=== PATIENT | male | born 1960 | race Caucasian/White ===

== ENCOUNTER 2017-05-16 09:40 | Inpatient (IN) | payer OTHER, MEDICARE ==
[~2017-05-16] VITALS: Ht 179.1 cm; Wt 104.9 kg
[2017-05-27] MEDS ORDERED: VITA10004 PO (14:37)
[2017-05-27] MEDS ORDERED: LISI-515 PO (14:37)
[2017-05-27] MEDS ORDERED: OMEG100010 PO (14:37)
[2017-05-27] MEDS ORDERED: DIPH0.052 PO (14:37)
[2017-05-27] MEDS ORDERED: MULT1TAB46 PO (14:37)
[2017-05-27] MEDS ORDERED: HYDR2TAB PO (14:37)
--- NOTE | 2017-05-29 14:13 | MH ---
cc: JACK PADRON M.D. DATE OF ADMISSION: 05/30/2017 ADMISSION DIAGNOSIS Cervical spinal stenosis. 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 The patient states that he had an injury to his spine and neck in 2007. The patient has been treated during that period of time. The patient is developing loss of function and feeling in his fingers. He complains of pain that radiates into his shoulder blades. He has undergone physical therapy and injections as well as nerve ablation. He is presently on narcotic pain medication for treatment of chronic pain. MRI scan of the cervical spine shows significant spinal cord compression with spinal stenosis. He presents for staged surgical treatment. PAST MEDICAL HISTORY See attached records. FAMILY HISTORY See attached records. REVIEW OF SYSTEMS See attached records. PHYSICAL EXAMINATION VITAL SIGNS: 5 feet 11 inches, 225 pounds, BMI 31.4. Blood pressure 165/110. HEENT: Normocephalic, atraumatic. Pupils are equal, round and reactive to light and accommodation. Extraocular muscles intact. NECK: Supple. CHEST: Clear. HEART: Regular rate and rhythm. ABDOMEN: Soft, nontender. Normoactive bowel sounds. MUSCULOSKELETAL: Motor strength is weak, right side especially and especially the right biceps, deltoids, brachioradialis, and on the left side the brachioradialis. IMAGING MRI scan of the cervical spine September 26, 2016 shows evidence of C3-4 right-sided foraminal stenosis, osteophyte disc complex cyst at that level. At C4-5 there is a spinal cord compression with spinal stenosis with an osteophyte disc complex and bilateral foraminal stenosis. There is an osteophyte disc complex at C5-6 with spinal stenosis and spinal cord compression. A similar finding is seen at the C6-7 level with right greater than left foraminal stenosis at that level. IMPRESSION 1. Cervical spinal stenosis C3-C7. 2. Cervical radiculopathy. 3. Cervical myelopathy. PLAN Posterior cervical fusion C3-C7, placement of interbody cages, bone grafting, segmental instrumentation. We anticipate two weeks later following this by anterior exposure with anterior cervical discectomy, decompression and bilateral foraminotomies at each level with anterior interbody cages and anterior plates. CONSENT There are risks of surgery including infection, bleeding, loss of motion, continued pain, need for further surgery, neurologic and vascular injury. The patient understands these issues and wishes to press on with surgery as outlined above. MD LATASHA Portillo/IMAN /1:53 PM /1:59 PM ANNA
[2017-05-30] MEDS ORDERED: INSULIN HUMAN REGULAR 1,000 UNITS/10 ML VIAL SQ PRN (09:45)
[2017-05-30] MEDS ORDERED: POVIDONE IODINE 7.5% SCRUB 118 ML BOTTLE TOPICAL SCH (09:45)
[2017-05-30] MEDS ORDERED: SODIUM CHLORID 0.9% 500 ML IV PRN (09:45)
[2017-05-30] MEDS ORDERED: ceFAZolin 2 GM PREMIX 50 ML IV SCH (09:45)
[2017-05-30] MEDS ORDERED: CHLORHEXIDINE GLUCONATE 2 % 1 PACK (2 CLOTHS) TOPICAL PRN (09:45)
[2017-05-30] MEDS ORDERED: METOPROLOL TARTRATE 25 MG TAB PO PRN (09:45)
[2017-05-30] MEDS ORDERED: LACTATED RINGER'S 1000 ML IV PRN (09:45)
[2017-05-30] MEDS ORDERED: POVIDONE IODINE 5% (ANTISEPSIS KIT) 4 APPLICATIONS EACH NARE PRN (09:45)
[2017-05-30] MEDS ORDERED: VANCOMYCIN 1000 MG/NS 250 ML (for <70 kg) IV SCH ×2 (09:45)
[2017-05-30] MEDS ORDERED: ZOLP10TA3 PO (09:48)
[2017-05-30] MEDS ORDERED: HYDR-3516 PO (09:48)
[2017-05-30] MEDS ORDERED: METF500T PO (09:48)
[2017-05-30] MEDS ORDERED: FENO160T PO (09:48)
[2017-05-30] MEDS ORDERED: ALLO300T2 PO (09:48)
[2017-05-30] MEDS ORDERED: ROPI0.5T PO (09:48)
[2017-05-30 09:56] VITALS: BP 150/78; PULSE 58; RESP 18; TEMP 98.5; O2SAT 98
[2017-05-30] MEDS ORDERED: GENTAMICIN SULFATE 80 MG/2 ML VIAL ONE ×2 (10:19)
[2017-05-30] MEDS ORDERED: BUPIVACAINE/EPINEPHRINE 0.5% 50 ML VIAL ONE ×2 (10:23→11:59)
[2017-05-30] MEDS ORDERED: FAMOTIDINE 20 MG/2 ML VIAL ONE (11:43)
[2017-05-30] MEDS ORDERED: fentaNYL CITRATE 250 MCG/5 ML AMP ONE ×2 (11:43→15:02)
[2017-05-30] MEDS ORDERED: KETAMINE HCL 500 MG/5 ML VIAL ONE (11:43)
[2017-05-30] MEDS ORDERED: MIDAZOLAM HCL 2 MG/2 ML VIAL ONE (11:43)
[2017-05-30] MEDS ORDERED: DEXAMETHASONE SOD PHOS 4 MG/ML VIAL ONE (11:44)
[2017-05-30] MEDS ORDERED: HYDROmorphone HCL PF 2 MG/ML VIAL ONE (11:44)
[2017-05-30] MEDS ORDERED: ACETAMINOPHEN 1000 MG/100 ML VIAL IV ONE (11:51)
[2017-05-30] MEDS ORDERED: NEOSTIGMINE 3 MG/3 ML SYR IV ONE (12:00)
[2017-05-30] MEDS ORDERED: PROPOFOL 200 MG/20 ML AMP IV ONE (12:00)
[2017-05-30] MEDS ORDERED: LACTATED RINGER'S 1000 ML INJ 2,000 ML IV ONE (12:00)
[2017-05-30] MEDS ORDERED: ONDANSETRON HCL 4 MG/2 ML VIAL IV PUSH ONE (12:00)
[2017-05-30] MEDS ORDERED: ePHEDrine/NS 25 MG/5 ML SYR IV ONE (12:00)
[2017-05-30] MEDS ORDERED: ACETAMINOPHEN/HYDROcodone 325 MG/7.5 MG TAB PO PRN ×2 (14:30)
[2017-05-30] MEDS ORDERED: ZOLPIDEM TARTRATE 10 MG TAB PO PRN (14:30)
[2017-05-30] MEDS ORDERED: BISACODYL 10 MG SUPP RECTAL PRN (14:30)
[2017-05-30] MEDS ORDERED: metFORMIN HCL 500 MG TAB PO PRN (14:30)
[2017-05-30] MEDS ORDERED: ONDANSETRON HCL 4 MG/2 ML VIAL IV PRN (14:30)
[2017-05-30] MEDS ORDERED: SODIUM CHLORIDE 0.9% FLUSH 5 ML FLUSH IVF PRN (14:30)
[2017-05-30] MEDS ORDERED: MORPHINE SULFATE 4 MG/ML INJ IV PUSH PRN (14:30)
--- NOTE | 2017-05-30 14:33 | PD.OP ---
cc: German Garcia. Operative Report Date of Surgery: May 30, 2017 Preoperative Diagnosis: Cervical spinal stenosis. Cervical radiculopathy. Cervical myelopathy. Postoperative Diagnosis: Same Procedure: Posterior cervical fusion, C3 4, C4 5, C5 6, C6 7. Posterior spinal segmental instrumentation with intra-facet cages C3 4, C4 5, C5 6, C6 7. Left posterior iliac crest bone graft Anesthesia: Gen. Surgeon: German Garcia Computer Programmer Analyst(s): GISELE Casey Operation and Findings: EBL: 100 cc INDICATIONS: This patient is a 57-year-old male with significant neck pain and arm pain with weakness. Studies shows evidence of significant cervical spinal stenosis at multiple levels and evidence of a mild cervical myelopathy. He presents for staged surgical procedure starting first posterior for instrumentation and fusion from C3 to C7. We anticipate anterior cervical decompression and fusion to follow up in approximately 2 weeks NOTE: Maryam Casey PA-C was present for the entire surgical procedure as my expanded function dental assistant. In my medical opinion her skill and care was necessary for proper management of this patient PROCEDURE: The patient was brought the operating room and anesthetized in the supine position. The patient was positioned prone on a Sreedhar table. The arms were placed out along the side and taping was utilized to ensure adequate visualization. AP and lateral radiographic images were used identifying the proper level and allowing excellent exposure for purpose of the cervical fusion. A timeout was done and antibiotics were given within a routine time window. A small incision was made over the left iliac crest bone graft. A series of cores of bone graft were harvested with a special percutaneous device. The bone graft was taken to the back table to be mixed with stem cell bone graft for the later part of the case Using AP and lateral radiographs, skin markings were made. On the right side and 18-gauge spinal needle was placed down to the proper level. The left side a separate incision was made and we used the [employer] system. Exposure was afforded down to the proper level. Under visualization, a chisel was placed down to the C C6 7 level. This was confirmed under radiographs to be in proper position. Exposure was satisfactory. This is placed down into the facet joint at that level. A decorticating device was utilized decorticating the bone of the facet above and below. A retractor was placed down over the access chisel allowing exposure to the joint and exposure to the articular cartilage. A drilling system was utilized removing cartilage and bone this region followed by a rasp. On the back table demineralized bone matrix was mixed with Nucel stem cells and a autogenous bone graft. A combination of both these were then paced placed into proper cages. The cages were impacted into the proper position and checked again under AP and lateral fluoroscopic images. A transfixation screw was placed into the cage having excellent fixation into the facet joint of the level above. The back side of the cage was filled with additional bone graft which was tamped into position. The retractor was removed. On the right side a separate incision was made. Using the likewise sequence of access to the same level, an incision was made allowing visualization for placement of an access chisel which was placed into the joint followed by decortication with excellent visualization. A final retractor was positioned holding this while we were able to drill and use the rasp. The joint was prepared and we created a space for the cage. The cage was filled with bone graft and impacted in proper position. A transfixation screw was fixated at that time and alignment was satisfactory. Additional bone graft placed along the posterior aspect of the cage and the facet joint and was tamped into position. At the C5 6 level, this was repeated in the likewise fashion. A decorticating device was utilized decorticating the bone of the facet above and below. A retractor was placed down over the access chisel allowing exposure to the joint and exposure to the articular cartilage. A drilling system was utilized removing cartilage and bone this region followed by a rasp. On the back table demineralized bone matrix was mixed with Nucel stem cells and a autogenous bone graft. A combination of both these were then paced placed into proper cages. The cages were impacted into the proper position and checked again under AP and lateral fluoroscopic images. A transfixation screw was placed into the cage having excellent fixation into the facet joint of the level above. The back side of the cage was filled with additional bone graft which was tamped into position. The retractor was removed. On the right side this was repeated in the likewise fashion. Using the likewise sequence of access to the same level. An access chisel was placed into the joint followed by decortication with excellent visualization. A final retractor was positioned holding this while we were able to drill and use the rasp. The joint was prepared and we created a space for the cage. The cage was filled with bone graft and impacted in proper position. A transfixation screw was fixated at that time and alignment was satisfactory. Additional bone graft placed along the posterior aspect of the cage and the facet joint and was tamped into position. At the C4 5 level, this was repeated in the likewise fashion. A decorticating device was utilized decorticating the bone of the facet above and below. A retractor was placed down over the access chisel allowing exposure to the joint and exposure to the articular cartilage. A drilling system was utilized removing cartilage and bone this region followed by a rasp. On the back table demineralized bone matrix was mixed with Nucel stem cells and a autogenous bone graft. A combination of both these were then paced placed into proper cages. The cages were impacted into the proper position and checked again under AP and lateral fluoroscopic images. A transfixation screw was placed into the cage having excellent fixation into the facet joint of the level above. The back side of the cage was filled with additional bone graft which was tamped into position. The retractor was removed. On the right side this was repeated in the likewise fashion. Using the likewise sequence of access to the same level. An access chisel was placed into the joint followed by decortication with excellent visualization. A final retractor was positioned holding this while we were able to drill and use the rasp. The joint was prepared and we created a space for the cage. The cage was filled with bone graft and impacted in proper position. A transfixation screw was fixated at that time and alignment was satisfactory. Additional bone graft placed along the posterior aspect of the cage and the facet joint and was tamped into position. At the C3 4 level, this was repeated in the likewise fashion. A decorticating device was utilized decorticating the bone of the facet above and below. A retractor was placed down over the access chisel allowing exposure to the joint and exposure to the articular cartilage. A drilling system was utilized removing cartilage and bone this region followed by a rasp. On the back table demineralized bone matrix was mixed with Nucel stem cells and a autogenous bone graft. A combination of both these were then paced placed into proper cages. The cages were impacted into the proper position and checked again under AP and lateral fluoroscopic images. A transfixation screw was placed into the cage having excellent fixation into the facet joint of the level above. The back side of the cage was filled with additional bone graft which was tamped into position. The retractor was removed. On the right side this was repeated in the likewise fashion. Using the likewise sequence of access to the same level. An access chisel was placed into the joint followed by decortication with excellent visualization. A final retractor was positioned holding this while we were able to drill and use the rasp. The joint was prepared and we created a space for the cage. The cage was filled with bone graft and impacted in proper position. A transfixation screw was fixated at that time and alignment was satisfactory. Additional bone graft placed along the posterior aspect of the cage and the facet joint and was tamped into position. Intraoperative x-rays in AP and lateral plane showed excellent positioning and stabilization . The wound was irrigated copiously. Hemostasis was controlled. The fascia was closed with interrupted Vicryl suture skin and subcutaneous tissue with 3-0 Vicryl suture followed by Dermabond. The sponge count needle counts and sponge counts were all correct. The patient tolerated the procedure well as taken to the recovery room in satisfactory condition. FINDINGS: There was moderate to severe facet arthritis. Instability was noted mostly at the C4-C5 level some at C5 and C6. The right C3-C4 facet joint was significantly sclerotic. Cage position appeared be very satisfactory. No complication was appreciated. German Garcia MD May 30, 2017 14:33
[2017-05-30] MEDS ORDERED: HYDR-3366 PO (14:35)
[2017-05-30] MEDS ORDERED: Post-op Orders (for Pharmacy) MISC XX ONE (14:42)
--- NOTE | 2017-05-30 14:43 | RADRPT ---
EXAM DATE/TIME: 05/30/2017 14:13 [facility] COMPARISON: No previous studies available for comparison. INDICATIONS : Post-op C3-C4, C4-C5, C5-C6, C6-C7 posterior cervical fusion. MEDICAL HISTORY : None. SURGICAL HISTORY : None. ENCOUNTER: Initial ACUITY: 1 day PAIN SCORE: Non-responsive. LOCATION: neck FINDINGS: Two projection examination was performed. Patient is status post posterior cervical fusion at C3-4, C 4-5, C5-6 and C6-7. There is good alignment of the cervical spine.. CONCLUSION: Good position and alignment on this postoperative study. Yoni Chinchilla MD on May 30, 2017 at 14:40 Board Certified Radiologist. This report was verified electronically.
[2017-05-30] MEDS ORDERED: *morphine SULFATE 8 MG/ML PERIprocedure ONLY ONE ×3 (15:00→15:19)
[2017-05-30] MEDS ORDERED: *HYDROmorphone PF 1 MG VIAL PERIprocedural Use ONLY ONE ×3 (15:40→17:17)
[2017-05-30] MEDS: LACTATED RINGER'S 1000 ML INJ 1,000 ML IV SCH (16:00)
[2017-05-30] MEDS ORDERED: DO NOT ADM ANY ANTICOAGULANT DRUGS PRN (16:30)
[2017-05-30 19:42] VITALS: O2SAT 95
[2017-05-30 20:00] VITALS: BP_SYST 132; BP_SYST 151; BP_DIAS 63; BP_DIAS 81; PULSE 87; RESP 16; RESP 22; TEMP 97.6; O2SAT 100; O2SAT 95
[2017-05-30] MEDS: ALLOPURINOL 300 MG TAB PO SCH (20:14)
[2017-05-30] MEDS ORDERED: SODIUM CHLORIDE 0.9% FLUSH 5 ML FLUSH IVF SCH (21:00)
[2017-05-30] MEDS: HYDROmorphone HCL PF 1 MG/ML VIAL IV PRN (23:37)
[2017-05-30] MEDS ORDERED: oxyCODONE/ACETAMINOPHEN 7.5 MG/325 MG TAB PO PRN (23:45)
[2017-05-31] VITALS: BP 142/90; PULSE 96; RESP 20; TEMP 97.3; O2SAT 97
[2017-05-31] MEDS: LACTATED RINGER'S 1000 ML INJ 1,000 ML IV SCH (03:20)
[2017-05-31] MEDS: HYDROmorphone HCL PF 1 MG/ML VIAL IV PRN (03:40)
[2017-05-31 04:00] VITALS: BP 145/79; PULSE 91; RESP 20; TEMP 96.3; O2SAT 97
--- NOTE | 2017-05-31 07:45 | PD.ORT.PN ---
Subjective Subjective Remarks Moderate pain. Was changed to Dilaudid and Percocet last night. Patient was on hydrocodone before surgery under contract by pain management physician Objective Vitals Vital Signs Date Time Temp Pulse Resp B/P Pulse Ox O2 Delivery O2 Flow Rate FiO2 05/31/17 04:00 96.3 91 20 145/79 97 05/31/17 00:00 97.3 96 20 142/90 97 05/30/17 20:00 97.6 87 16 151/81 95 05/30/17 19:42 95 21 05/30/17 18:00 80 12 129/68 99 Nasal Cannula 2 05/30/17 17:00 74 14 151/75 99 Nasal Cannula 2 05/30/17 16:30 78 14 140/70 99 Nasal Cannula 2 05/30/17 16:00 97.7 77 14 131/64 96 Nasal Cannula 2 05/30/17 15:45 76 14 150/77 98 Nasal Cannula 3 05/30/17 15:30 75 14 136/71 98 Nasal Cannula 3 05/30/17 15:15 77 16 134/72 97 Nasal Cannula 3 05/30/17 15:00 84 20 130/72 97 Nasal Cannula 3 05/30/17 14:48 97.5 87 20 135/67 99 Nasal Cannula 3 05/30/17 09:56 98.5 58 18 150/78 98 I/O 05/30/17 05/30/17 05/30/17 05/31/17 05/31/17 05/31/17 07:00 15:00 23:00 07:00 15:00 23:00 Intake Total 2000 ml 1227 ml 569 ml Output Total 25 ml Balance 1975 ml 1227 ml 569 ml Intake Oral 600 ml 300 ml IV Total 627 ml 269 ml Other 2000 ml Output Estimated Blood Loss 25 ml Bladder Scan Volume Amount 999 ml # Voids 0 3 # Bowel Movements 0 0 Objective Remarks Incision dry. Sitting in chair. Complaints of neck pain and radiating shoulder pain. Loss of feeling in both hands unchanged from preop Assessment & Plan Ortho Post Op Day #: 1 Problem List: Assessment and Plan Cervical spinal stenosis. Cervical radiculopathy. Cervical myelopathy. Posterior cervical fusion C3 to C7: POD #1. PLAN: Will discharged with prescription of the same medicine he was on prior to surgery but a stronger strength, Neptune 10. Full-time brace wear Discharge to home Dry dressing change Anticipate ACDF C3 to C7 in 2 weeks. All questions answered Case discussed with the nurse in charge. Apparently patient was difficult during the night related to pain issues. German Garcia MD May 31, 2017 07:45
--- NOTE | 2017-05-31 07:54 | HHI.DCPOC ---
Discharge Care Plan Diagnosis: (1) Cervical spinal stenosis (2) Degenerative disc disease, cervical (3) Cervical myelopathy with cervical radiculopathy Your Health Problems Are: Incision/Drains Inflammation Swelling Goals to Promote Your Health * To prevent worsening of your condition and complications * To maintain your health at the optimal level Directions to Meet Your Goals Take your medications as prescribed Follow your dietary instruction Follow activity as directed Keep your appointments as scheduled Take your immunizations and boosters as scheduled If your symptoms worsen call your PCP, if no PCP go to Urgent Care Center or Emergency Room Smoking is Dangerous to Your Health. Avoid second hand smoke Call the 24-hour hour crisis hotline for domestic abuse at Mary Eubanks May 31, 2017 07:54
[2017-05-31 08:00] VITALS: BP 140/79; PULSE 72; RESP 20; TEMP 96.6; O2SAT 95
[2017-05-31] MEDS ORDERED: oxyCODONE/ACETAMINOPHEN 7.5 MG/325 MG TAB PO PRN (08:00)
--- NOTE | 2017-05-31 08:00 | HHI.DS ---
Discharge Summary Admission Date May 30, 2017 at 08:52 Discharge Date: May 31, 2017 Admitting Diagnosis see below Diagnosis: (1) Cervical spinal stenosis Diagnosis: Principal (2) Degenerative disc disease, cervical Diagnosis: Principal (3) Cervical myelopathy with cervical radiculopathy Diagnosis: Principal Procedures Posterior cervical fusion C34, C45, C56, C67, facet instrumentation, bone graft. Brief History This is a 57 year old male patient with a longstanding history of neck and arm pain. He has struggled with bilateral hand weakness and tingling. He sought out treatment years ago. Imaging studies shows degenerative changes and spinal stenosis which advanced to cervical myelopathy. He sought out treatment with pain management and has been on [place] for quite some time. His function continued to decline. Imaging studies were updated. Surgical treatment was recommended in the form of posterior cervical fusion followed by anterior cervical fusion. He presents for the first surgery today. PE at Discharge Incision dry. Sitting in chair. Complaints of neck pain and radiating shoulder pain. Loss of feeling in both hands unchanged from preop Hospital Course Surgical treatment was performed on the day of admission without complication. He recovered well in PACU and was transferred to the orthopaedic floor. Pain was poorly controlled with [place] so the oncall physician was contacted and he was placed on oxycodone and dilaudid. He was compliant with his cervical brace. After 1 day he was found to be stable and discharged home with instruction to continue his brace and pursue a soft diet for 2-3 days. He was encouraged to contact his pain management physician about pain control as he was under contract preoperatively. Pt Condition on Discharge: Stable Discharge Disposition: Discharge Home Discharge Instructions Diet Instructions: Diabetic Diet, Soft Diet Activities You Can Perform: Weight Bearing as Harjeet, See Additionl Instruction Activities to Avoid: Strenuous Activity Additional Activity Instruc.: Cervical brace full-time New Medications: Hydrocodone-Acetaminophen ([place]) 10-325 Mg Tab 1 TAB PO Q4H PRN PAIN #50 Ref 0 TAB Continued Medications: Allopurinol (Allopurinol) 300 Mg Tab 300 MG PO BID Gout Ref 0 TAB Fenofibrate (Fenofibrate) 160 Mg Tab 160 MG PO DAILY Ref 0 TAB Hydrocodone-Acetaminophen (Hydrocodone-Acetaminophen) 5-325 mg Tab 1 TAB PO TID PRN PAIN Ref 0 TAB Lisinopril (Lisinopril) 20 Mg Tab 20 MG PO DAILY #30 Ref 0 TAB Metformin (Metformin) 500 Mg Tab 500 MG PO DAILY With a meal PRN Blood Sugar Management Ref 0 TAB Ropinirole (Ropinirole) 0.5 Mg Tab 0.5 MG PO ONCE Ref 0 TAB Zolpidem (Zolpidem) 10 Mg Tab 10 MG PO HS PRN INSOMNIA Ref 0 TAB Mary Eubanks May 31, 2017 08:00
[2017-05-31] MEDS: ALLOPURINOL 300 MG TAB PO SCH (08:39)
[2017-05-31] MEDS ORDERED: MULTIVITAMINS/MINERALS THERAPEUTIC TAB PO SCH (09:00)
[2017-05-31] MEDS ORDERED: DOCUSATE SODIUM 100 MG CAP PO SCH (09:00)
[2017-05-31] MEDS ORDERED: FENOFIBRATE 145 MG TAB PO SCH (09:00)
[2017-05-31] MEDS ORDERED: metFORMIN HCL 500 MG TAB PO SCH (09:00)
[2017-05-31] MEDS ORDERED: LISINOPRIL 20 MG TAB PO SCH (09:00)
== END 2017-05-31 09:09 | disposition home or self-care (01) | DRG 472 ==
LOC: HSDI 05-30 08:52 → N06B 05-30 18:38
PROVIDERS: ADMIT Orthopaedic Surgery Orthopaedic Surgery of the Spine; ATTEND Orthopaedic Surgery Orthopaedic Surgery of the Spine
PROC: 0RG20A1 (ICD-10-PCS; 2017-05-30)
PROC: 0RG2071 Fusion of 2 or more Cervical Vertebral Joints with Autologous Tissue Substitute, Posterior Approach, Posterior Column, Open Approach (ICD-10-PCS; 2017-05-30)
PROC: 0QB30ZZ Excision of Left Pelvic Bone, Open Approach (ICD-10-PCS; 2017-05-30)
PROC: 0RT30ZZ Resection of Cervical Vertebral Disc, Open Approach (ICD-10-PCS; principal; 2017-05-30 11:52)
DX: M48.02 Spinal stenosis, cervical region (principal); M47.12 Other spondylosis with myelopathy, cervical region; I10 Essential (primary) hypertension; M50.11 Cervical disc disorder with radiculopathy, high cervical region; M10.9 Gout, unspecified; G47.00 Insomnia, unspecified; Z87.891 Personal history of nicotine dependence
CPT/HCPCS: 72040; 76000; 82948; C1713; J0131; J0690; J1100; J1170; J1580; J2250; J2270; J2405; J2710; J3010; J3370; J7050; J7120

== ENCOUNTER 2017-06-05 13:12 | Inpatient (IN) | payer OTHER, MEDICAID, MEDICARE ==
[~2017-06-05] VITALS: Ht 179.1 cm; Wt 99.6 kg
[~2017-06-05 13:12] MED LIST: ALLO300T2 PO; FENO160T PO; HYDR-3366 PO; LISI-515 PO; METF500T PO; ZOLP10TA3 PO
[2017-06-12] MEDS ORDERED: LISI10TA3 PO (15:10)
[2017-06-12] MEDS ORDERED: ROSU1TAB10 PO (15:12)
[2017-06-13] MEDS ORDERED: CHLORHEXIDINE GLUCONATE 2 % 1 PACK (2 CLOTHS) TOPICAL PRN (06:45)
[2017-06-13] MEDS ORDERED: INSULIN HUMAN REGULAR 1,000 UNITS/10 ML VIAL SQ PRN (06:45)
[2017-06-13] MEDS ORDERED: METOPROLOL TARTRATE 25 MG TAB PO PRN (06:45)
[2017-06-13] MEDS ORDERED: POVIDONE IODINE 5% (ANTISEPSIS KIT) 4 APPLICATIONS EACH NARE PRN (06:45)
[2017-06-13] MEDS ORDERED: VANCOMYCIN 1000 MG/NS 250 ML (for <70 kg) IV SCH ×2 (06:45)
[2017-06-13] MEDS ORDERED: CHLORHEXIDINE GLUCONATE 4% SOLN 120 ML BTL TOPICAL SCH (06:45)
[2017-06-13] MEDS ORDERED: ceFAZolin 2 GM PREMIX 50 ML IV SCH (06:45)
[2017-06-13] MEDS ORDERED: SODIUM CHLORID 0.9% 500 ML IV PRN (06:45)
[2017-06-13] MEDS ORDERED: LACTATED RINGER'S 1000 ML IV PRN (06:45)
[2017-06-13] MEDS ORDERED: DEXMEDETOMIDINE INJ 50 ML ONE ×3 (07:00→12:53)
[2017-06-13] MEDS ORDERED: SUGAMMADEX SODIUM 200 MG/2 ML VIAL IV PUSH ONE ×2 (07:01)
[2017-06-13] MEDS ORDERED: KETAMINE HCL 500 MG/5 ML VIAL ONE (07:01)
[2017-06-13] MEDS ORDERED: CYCL1TAB29 PO (07:04)
[2017-06-13] MEDS ORDERED: PRED5TAB PO (07:04)
[2017-06-13 07:06] VITALS: BP 140/80; PULSE 92; RESP 18; TEMP 97.4; O2SAT 96
[2017-06-13] MEDS ORDERED: PROPOFOL 500 MG/50 ML INJ 50 ML ONE ×3 (07:33→12:07)
[2017-06-13] MEDS ORDERED: ACETAMINOPHEN 1000 MG/100 ML VIAL IV ONE (07:57)
[2017-06-13] MEDS ORDERED: DEXAMETHASONE SOD PHOS 4 MG/ML VIAL ONE (07:57)
[2017-06-13] MEDS ORDERED: MIDAZOLAM HCL 2 MG/2 ML VIAL ONE ×2 (08:09→14:28)
[2017-06-13] MEDS ORDERED: BUPIVACAINE/EPINEPHRINE 0.5% PF 10 ML VIAL ONE (08:19)
[2017-06-13] MEDS ORDERED: GENTAMICIN SULFATE 80 MG/2 ML VIAL ONE (08:27)
[2017-06-13] MEDS ORDERED: HYDROmorphone HCL PF 2 MG/ML VIAL ONE (09:51)
[2017-06-13] MEDS: LACTATED RINGER'S 1000 ML INJ 1,000 ML IV SCH (14:03)
[2017-06-13] MEDS ORDERED: Post-op Orders (for Pharmacy) MISC XX ONE (14:15)
[2017-06-13] MEDS ORDERED: ACETAMINOPHEN/HYDROcodone 325 MG/10 MG TAB PO PRN (14:15)
[2017-06-13] MEDS: SODIUM CHLORIDE 0.9% FLUSH 5 ML FLUSH IVF SCH ×2 (14:15→20:17)
[2017-06-13] MEDS ORDERED: PROMETHAZINE INJ 25 MG/ML VIAL IM PRN (14:15)
[2017-06-13] MEDS ORDERED: ALUMINUM/MAGNESIUM/SIMETH 30 ML CUP PO PRN (14:15)
[2017-06-13] MEDS ORDERED: ONDANSETRON HCL 4 MG/2 ML VIAL IV PRN (14:15)
[2017-06-13] MEDS ORDERED: SODIUM CHLORIDE 0.9% FLUSH 5 ML FLUSH IVF PRN (14:15)
[2017-06-13] MEDS ORDERED: ZOLPIDEM TARTRATE 10 MG TAB PO PRN (14:15)
[2017-06-13] MEDS ORDERED: DO NOT ADM ANY ANTICOAGULANT DRUGS PRN (14:24)
[2017-06-13] MEDS ORDERED: fentaNYL CITRATE 250 MCG/5 ML AMP ONE (14:29)
--- NOTE | 2017-06-13 14:34 | RADRPT ---
EXAM DATE/TIME: 06/13/2017 09:33 [facility] COMPARISON: No previous studies available for comparison. INDICATIONS : Post-op C3-C4, C4-C5, C5-C6, C6-C7 anterior cervical fusion. MEDICAL HISTORY : None. SURGICAL HISTORY : None. ENCOUNTER: Initial ACUITY: 1 day PAIN SCORE: Non-responsive. LOCATION: neck CONCLUSION: Fluoroscopic images demonstrate anterior fusion plates C3-C7. Intervertebral disc devices are seen. P revious placement of hardware posteriorly. Octaviano Ardon MD on June 13, 2017 at 14:31 Board Certified Radiologist. This report was verified electronically.
--- NOTE | 2017-06-13 15:26 | HHI.PR ---
Immediate Post Op Note Procedure Date: Jun 13, 2017 Pre Op Diagnosis: (1) Cervical myelopathy with cervical radiculopathy (2) Cervical spinal stenosis (3) Degenerative disc disease, cervical Post Op Diagnosis: (1) Cervical myelopathy with cervical radiculopathy (2) Cervical spinal stenosis (3) Degenerative disc disease, cervical Surgeon: Jacky Garcia M.D. Supply Chain Logistics Manager(s): Jasmina Ludwig PA-C Procedure: C3-7 ACDF Complications: none Estimated blood loss: 250cc Anesthesia: General Drains: ARIEL Patient to: PACU Patient Condition: Good Implant/Devices: SEE IMPLANT LOG (if applicable) Date/Time of Procedure: SEE SURGICAL CARE RECORD Jacky Garcia MD Jun 13, 2017 15:26
--- NOTE | 2017-06-13 15:50 | PD.OP ---
cc: Jacky Garcia MD; German Garcia MD Operative Report Date of Surgery: Jun 13, 2017 Preoperative Diagnosis: Osteophyte disc complex C3 4, C4 5, C5 6, C6 7. 6 cervical spinal stenosis C3 to C7. Cervical radiculopathy. Cervical myelopathy Postoperative Diagnosis: Same Procedure: Anterocervical discectomy decompression and bilateral foraminotomies, C3 4. Anterior cervical discectomy decompression and bilateral foraminotomies, C4 5. Anterior cervical discectomy decompression and bilateral foraminotomies, C5 6. Anterior cervical discectomy decompression and bilateral foraminotomies, C6 7. Left anterior iliac crest bone graft Anesthesia: Gen. Surgeon: German Garcia Hot Walker(s): GISELE Casey Operation and Findings: EBL: 100 cc INDICATIONS: Patient is a 57-year-old male whose developing significant arm pain with weakness. There are some findings of a cervical myelopathy related to the above condition. Despite conservative care he is painful and symptomatically. He now presents for staged anterior cervical fusion. Approximately 2 weeks ago he had a staged posterior cervical fusion across the surgical levels. NOTE: Maryam Casey PA-C was present for the entire surgical procedure as my podiatry assistant. In my medical opinion her skill and care was necessary for proper management of this patient PROCEDURE: The patient was brought to the operating room and anesthetized in the supine position. This patient was positioned supine on the radiolucent table. All pressure points were protected in the anterior cervical spine and iliac crest was scrubbed with alcohol followed by Hibiclens followed by ChloraPrep. A timeout was done and antibiotics were given within 1 hour time window. Lateral radiographic images were used identifying the proper level. A right anterior incision was made in line with the sternocleidomastoid muscle. The platysma was opened in line with the incision. Deep dissection continued in the interval between the carotid sheath and the esophagus. The longus-coli muscles were lifted on both sides and retractors were positioned allowing good exposure. Lateral radiographic images were used to identify the proper level. [place]view style interosseous pins were placed at C3 and C4 allowing exposure to that level. The microscope was rolled into the field. A total discectomy was accomplished and posterior osteophytes were removed. The posterior longitudinal ligament and annulus was taken down. Bilateral foraminotomies were accomplished. The endplates were squared up anticipating later bone grafting. A blunt probe could be placed out each foramen without evidence of nerve root compromise. The C3 pin was placed down to C5. An anterior exposure was accomplished. We performed a total discectomy with excision of the posterior annulus and posterior longitudinal ligament. Bilateral foraminotomies were accomplished. Osteophytes were removed. The endplates were squared up anticipating later bone grafting. A blunt probe could be placed out each foramen without evidence of nerve root compromise. The C4 pin was placed down to C6. An anterior exposure was accomplished. We performed a total discectomy with excision of the posterior annulus and posterior longitudinal ligament. Bilateral foraminotomies were accomplished. Osteophytes were removed. The endplates were squared up anticipating later bone grafting. A blunt probe could be placed out each foramen without evidence of nerve root compromise. The C5 pin was placed down to C7. An anterior exposure was accomplished. We performed a total discectomy with excision of the posterior annulus and posterior longitudinal ligament. Bilateral foraminotomies were accomplished. Osteophytes were removed. The endplates were squared up anticipating later bone grafting. A blunt probe could be placed out each foramen without evidence of nerve root compromise. The left iliac crest was approached. A small stab incision was made allowing percutaneous access to the anterior iliac crest. Multiple cores of cancellous bone were harvested and taken to the back table to be used for later bone grafting. The wound was irrigated anesthetized and closed with 4-0 Vicryl followed by Dermabond. The case was turned over to Dr. Jacky Garcia for fusion and instrumentation per his dictation. FINDINGS: There was a high-grade stenosis at each level. The worst levels were to the right at C3 4, centrally C4 5 and centrally at C6 7. Final decompression was felt be very satisfactory. No complication was appreciated. NOTE: This surgery was performed in 2 parts. The first part was the neurosurgical decompression performed under the variable power stereo microscope by the undersigned in addition to the bone graft. The second portion of the surgery will be performed by the orthopedic spine component by co -surgeon, Dr. Jacky Garcia for the anterior fusion with interbody cage and anterior plate. The skill of 2 surgeons was necessary to perform distinct separate procedural services as dictated above and dictated in the following operative note by Dr. Jacky Garcia. German Garcia MD Jun 13, 2017 15:50
[2017-06-13 16:00] VITALS: BP 132/84; PULSE 79; RESP 17; TEMP 96.3; O2SAT 97
[2017-06-13 17:28] VITALS: O2SAT 97
[2017-06-13] MEDS: MORPHINE SULFATE 4 MG/ML INJ IV PUSH PRN ×2 (17:41→22:28)
[2017-06-13 20:00] VITALS: BP 144/91; PULSE 85; RESP 16; TEMP 97.8; O2SAT 97
[2017-06-13] MEDS: ACETAMINOPHEN/HYDROcodone 325 MG/10 MG TAB PO PRN (20:14)
[2017-06-13] MEDS: CYCLOBENZAPRINE HCL 10 MG TAB PO SCH (20:16)
[2017-06-13] MEDS: ALLOPURINOL 300 MG TAB PO SCH (20:17)
[2017-06-13] MEDS: LISINOPRIL 10 MG TAB PO SCH (20:17)
[2017-06-14] VITALS: BP 143/68; PULSE 76; RESP 16; TEMP 97.3; O2SAT 95
[2017-06-14] MEDS: LACTATED RINGER'S 1000 ML INJ 1,000 ML IV SCH ×3 (02:33→19:57)
[2017-06-14] MEDS: ACETAMINOPHEN/HYDROcodone 325 MG/10 MG TAB PO PRN (02:41)
[2017-06-14 04:00] VITALS: BP 166/90; PULSE 87; RESP 16; TEMP 97.9; O2SAT 99
[2017-06-14] MEDS: MORPHINE SULFATE 4 MG/ML INJ IV PUSH PRN ×4 (05:29→18:10)
--- NOTE | 2017-06-14 06:54 | PD.ORT.PN ---
Subjective Subjective Remarks pt doing well, numbness in arms resolved, mild post op neck pain Objective Vitals Vital Signs Date Time Temp Pulse Resp B/P Pulse Ox O2 Delivery O2 Flow Rate FiO2 06/14/17 04:00 97.9 87 16 166/90 99 06/14/17 00:00 97.3 76 16 143/68 95 06/13/17 22:26 Nasal Cannula 3.00 06/13/17 20:00 97.8 85 16 144/91 97 06/13/17 17:28 97 Nasal Cannula 3.00 06/13/17 16:00 96.3 79 17 132/84 97 06/13/17 15:45 78 14 124/76 98 Nasal Cannula 3 06/13/17 15:30 81 14 114/78 96 Nasal Cannula 3 06/13/17 15:15 82 14 113/72 97 Nasal Cannula 3 06/13/17 15:00 85 14 107/74 96 Nasal Cannula 3 06/13/17 14:45 80 14 116/73 93 Nasal Cannula 3 06/13/17 14:30 79 14 108/69 92 Nasal Cannula 3 06/13/17 14:25 97.7 70 14 102/64 96 Nasal Cannula 3 06/13/17 07:06 97.4 92 18 140/80 96 I/O 06/13/17 06/13/17 06/13/17 06/14/17 06/14/17 06/14/17 07:00 15:00 23:00 07:00 15:00 23:00 Intake Total 360 ml 240 ml Output Total 2050 ml 540 ml Balance -1690 ml -300 ml Intake Oral 360 ml 240 ml Output Urine Total 2050 ml 500 ml Drainage Total 40 ml Objective Remarks seen by Dr. Jacky Garcia Marshall collar in place dressing dry and intact motor is +5/5 to UE Assessment & Plan Assessment and Plan POD # 1 s/p C3-7 ACDF Marshall collar x 2 months d/c argenis marcano AM [place] rx in chart discharge home today, orthopedically stable Jasmina Ludwig Jun 14, 2017 06:54
[2017-06-14 07:39] VITALS: BP 157/97; PULSE 101; RESP 19; TEMP 96.7; O2SAT 94
[2017-06-14] MEDS: ATORVASTATIN 80 MG TAB PO SCH (08:11)
[2017-06-14] MEDS: predniSONE 5 MG TAB PO SCH (08:11)
[2017-06-14] MEDS: MULTIVITAMINS/MINERALS THERAPEUTIC TAB PO SCH ×2 (08:11→19:56)
[2017-06-14] MEDS: metFORMIN HCL 500 MG TAB PO SCH (08:11)
[2017-06-14] MEDS: FENOFIBRATE 145 MG TAB PO SCH (08:11)
[2017-06-14] MEDS: CYCLOBENZAPRINE HCL 10 MG TAB PO SCH ×2 (08:11→19:56)
[2017-06-14] MEDS: LISINOPRIL 10 MG TAB PO SCH ×2 (08:11→19:57)
[2017-06-14] MEDS: ALLOPURINOL 300 MG TAB PO SCH ×2 (08:11→19:57)
[2017-06-14] MEDS: SODIUM CHLORIDE 0.9% FLUSH 5 ML FLUSH IVF SCH ×2 (08:33→19:57)
[2017-06-14] MEDS ORDERED: methylPREDNISolone SOD SUCC 125 MG/2 ML VIAL IV PUSH ONE (11:00)
[2017-06-14 11:21] VITALS: BP 154/99; PULSE 107; RESP 19; TEMP 96.9; O2SAT 93
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
[2017-06-14 15:31] VITALS: BP 147/88; PULSE 111; RESP 19; TEMP 98.3; O2SAT 94
[2017-06-14 20:00] VITALS: BP 152/96; PULSE 107; RESP 16; TEMP 99.3; O2SAT 94
--- NOTE | 2017-06-14 21:32 | MP ---
cc: NERISSA PIÑA,JACKY Correa M.D. DATE OF SURGERY: 06/13/2017. PREOPERATIVE DIAGNOSIS: 1. C3-4 osteophyte disk complex, right-sided foraminal stenosis. 2. C4-5 osteophyte disk complex, spinal stenosis, spinal cord compression, bilateral foraminal stenosis. 3. C5-6 osteophyte disk complex, spinal stenosis, spinal cord compression, left greater right foraminal stenosis. 4. C6-7 osteophyte disk complex, spinal stenosis, spinal cord compression, right greater left foraminal stenosis. 5. C3-C7 degenerative disc disease and osteoarthritis. 6. Cervical myelopathy, bilateral cervical radiculitis with bilateral upper extremity weakness. 7. Obesity. POSTOPERATIVE DIAGNOSIS: 1. C3-4 osteophyte disk complex, right-sided foraminal stenosis. 2. C4-5 osteophyte disk complex, spinal stenosis, spinal cord compression, bilateral foraminal stenosis. 3. C5-6 osteophyte disk complex, spinal stenosis, spinal cord compression, left greater right foraminal stenosis. 4. C6-7 osteophyte disk complex, spinal stenosis, spinal cord compression, right greater left foraminal stenosis. 5. C3-C7 degenerative disc disease and osteoarthritis. 6. Cervical myelopathy, bilateral cervical radiculitis with bilateral upper extremity weakness. 7. Obesity. OPERATIVE PROCEDURE PERFORMED: C3-4, C4-5, C5-6, C6-7 interbody fusion, ACC anterior cervical cage, anterior spinal instrumentation. SURGEON: Jacky Garcia MD. MEAT WRAPPER: Jasmina Ludwig PA-C. SPECIMEN: None. ESTIMATED BLOOD LOSS: 250 cc for the entire case. COMPLICATIONS: None. ANESTHESIA: General. DRAINS: One. CONDITION: Stable. PLAN OF ACTIVITY: Per orders. DESCRIPTION OF THE PROCEDURE IN DETAIL: Dr. German Garcia and myself were co-surgeons on the surgical procedure. pager. Dr. German Garcia performed the neuro- decompressive portion of the procedure. He performed C3-4, C4-5, C5-6, C6-7 anterior cervical diskectomy, anterior decompression with foraminotomies and left anterior iliac crest bone grafting. I was not present for his portion of the procedure and this is well-described in his operative note. I performed the orthopedic stabilization and fusion portion of procedure, which is well-described my operative note. The patient two weeks previously had already undergone a C3-4, C4-5, C5-6, C6-7 posterior spinal fusion and posterior spinal instrumentation using the system. This is for second scheduled surgical procedure in managing of his cervical spine disorder. Right longitudinal exposure to the cervical spine was made. Anterior cervical diskectomy was performed at C3-4, C4-5, C5-6, C6-7 anterior decompression with foraminotomies under fluoroscopic guidance and also under microscope. The left iliac bone graft was then performed by Dr. German Garcia. The end plates at C6 and C7 were prepared for fusion. The hyaline cartilage from the end plates was removed using angled curettes and burs. A 610 x 12 ACC cage was placed into the interspace. Anterior iliac crest bone grafting was used under fluoroscopic guidance for interbody fusion. The end plates at C5 and C6 were prepared for fusion. Hyaline cartilage from the end plate was removed using angled curettes and burs. A 610 x 12 ACC cage was placed the interspace under fluoroscopic guidance. Anterior crest bone grafting was used for interbody fusion. The end plates at C4 and C5 were prepared fusion. Hyaline cartilage from the end plate was removed using angled curettes and burs. A 710x 12 ACC cage was placed in the interspace. Anterior iliac crest bone grafting was placed under fluoroscopic guidance. The end plates at C3 and C4 were prepared for fusion. Hyaline cartilage was removed using angled curettes and burs. A 610 x 12 ACC cage was placed in the interspace. Anterior iliac crest bone graft was used under fluoroscopic guidance. Anterior osteophytes were removed using multiple different types of rongeurs and curettes and burring. An 85-mm length Rauscher plate was used for anterior spinal instrumentation. Two tack pins were used for fixation under fluoroscopic guidance in the AP and lateral planes. Two screws were used in the vertebral bodies of C3, C4, C5, C6 and C7. Each of the screws were drilled and appropriate length screws were inserted. They were 14-mm length screws, 4.0 mm fixed angle screws. Each screw head was appropriately locked to the screw head. Under fluoroscopic guidance in AP and lateral plane showed appropriate positioning of the screws and the spinal station. The wound was irrigated with copious amounts sterile saline. The wound itself was dry. The wound was closed over a 10-[place] drain. The wound was closed in multiple layers using 3-0 Vicryl suture. Skin was approximated with running subcuticular 4-0 Vicryl suture. Dermabond was placed over the skin incision. The patient was placed into a [place] cervical orthosis. The patient tolerated the procedure well and arrived in the recovery room in stable and satisfactory condition. MD ESMER Lawton/JULIET /3:33 PM /9:17 PM
[2017-06-15] VITALS: BP 153/95; PULSE 100; RESP 17; TEMP 97.7; O2SAT 96
[2017-06-15] MEDS ORDERED: cloNIDine HCL 0.1 MG TAB PO PRN (06:15)
--- NOTE | 2017-06-15 06:42 | PD.ORT.PN ---
Subjective Subjective Remarks POD 2 s/p ACDF doing well. out of bed. minimal discomfort Objective Vitals Vital Signs Date Time Temp Pulse Resp B/P Pulse Ox O2 Delivery O2 Flow Rate FiO2 06/15/17 00:00 97.7 100 17 153/95 96 06/14/17 20:00 99.3 107 16 152/96 94 06/14/17 15:31 98.3 111 19 147/88 94 06/14/17 11:21 96.9 107 19 154/99 93 06/14/17 07:39 96.7 101 19 157/97 94 I/O 06/14/17 06/14/17 06/14/17 06/15/17 06/15/17 06/15/17 06:59 14:59 22:59 06:59 14:59 22:59 Intake Total 240 ml 450 ml 720 ml 360 ml Output Total 540 ml 700 ml Balance -300 ml -250 ml 720 ml 360 ml Intake Oral 240 ml 450 ml 720 ml 360 ml Output Urine Total 500 ml 700 ml Drainage Total 40 ml # Voids 2 2 Objective Remarks [place] collar in place dressing dry and intact motor is +5/5 to UE Assessment & Plan Assessment and Plan POD # 2 s/p C3-7 ACDF [place] collar x 2 months [place] rx in chart discharge home today, orthopedically stable f/u with Dr Rico in 2 weeks Rigo Larkin Jun 15, 2017 06:42
[2017-06-15 07:25] VITALS: BP 161/87; PULSE 93; RESP 19; TEMP 96.9; O2SAT 95
[2017-06-15] MEDS: LISINOPRIL 10 MG TAB PO SCH (08:15)
[2017-06-15] MEDS: ATORVASTATIN 80 MG TAB PO SCH (08:15)
[2017-06-15] MEDS: CYCLOBENZAPRINE HCL 10 MG TAB PO SCH (08:15)
[2017-06-15] MEDS: predniSONE 5 MG TAB PO SCH (08:15)
[2017-06-15] MEDS: FENOFIBRATE 145 MG TAB PO SCH (08:15)
[2017-06-15] MEDS: metFORMIN HCL 500 MG TAB PO SCH (08:16)
[2017-06-15] MEDS: MULTIVITAMINS/MINERALS THERAPEUTIC TAB PO SCH (08:16)
[2017-06-15] MEDS: SODIUM CHLORIDE 0.9% FLUSH 5 ML FLUSH IVF SCH (08:26)
[2017-06-15] MEDS ORDERED: PRED5TAB PO (08:52)
[2017-06-15] MEDS: ALLOPURINOL 300 MG TAB PO SCH (09:00)
--- NOTE | 2017-06-15 09:45 | HHI.PR ---
Subjective Remarks Follow-up dysphagia. States he is improving. Reports that his saliva and phlegm is bothering him denies throat pain and shortness of breath. He did swallow his crushed pills. Awaiting swallowing evaluation and breakfast. Discussed with RN, patient can be discharged if he passes swallowing evaluation and tolerates meals Objective Vitals Vital Signs Date Time Temp Pulse Resp B/P Pulse Ox O2 Delivery O2 Flow Rate FiO2 06/15/17 07:25 96.9 93 19 161/87 95 06/15/17 00:00 97.7 100 17 153/95 96 06/14/17 20:00 99.3 107 16 152/96 94 06/14/17 15:31 98.3 111 19 147/88 94 06/14/17 11:21 96.9 107 19 154/99 93 I/O 06/14/17 06/14/17 06/14/17 06/15/17 06/15/17 06/15/17 07:00 15:00 23:00 07:00 15:00 23:00 Intake Total 240 ml 450 ml 720 ml 360 ml Output Total 540 ml 700 ml Balance -300 ml -250 ml 720 ml 360 ml Intake Oral 240 ml 450 ml 720 ml 360 ml Output Urine Total 500 ml 700 ml Drainage Total 40 ml # Voids 2 2 Imaging Last Impressions Cervical Spine X-Ray 06/13/17 0000 Signed Impressions: Service Date/Time: May 09:33 - CONCLUSION: Fluoroscopic images demonstrate anterior fusion plates C3-C7. Intervertebral disc devices are seen. Previous placement of hardware posteriorly. Octaviano Ardon MD Objective Remarks Well-developed, well-nourished in no distress Throat is clear no swelling or redness Neck with collar Regular rate and rhythm Lungs are clear no wheezes Alert and oriented 3 and nonfocal A/P Problem List: (1) Cervical spinal stenosis ICD Code: M48.02 Status: Acute (2) Degenerative disc disease, cervical ICD Code: M50.30 Status: Chronic (3) Cervical myelopathy with cervical radiculopathy ICD Code: M47.12 Status: Chronic Assessment and Plan 57-year-old male status post cervical spine surgery for cervical stenosis. Consulted for medical management Dysphagia likely secondary to postoperative inflammation/swelling. Denies shortness of breath. Tolerating medications pending formal swallowing evaluation. He is improving status post IV Solu-Medrol. Continue prednisone Status post cervical spine surgery for cervical stenosis. Stable continue postoperative care per orthopedic Surgery This aspect is stable Continue when necessary treatments Hyperlipidemia. Stable continue TriCor and Lipitor Gout Continue allopurinol No exacerbation Hypertension. BP slightly elevated secondary to pain. Continue lisinopril and monitor Hyperglycemia Continue diabetic diet and metformin DVT prophylaxis. Patient ambulatory. SCD Discharge Planning Possible discharge later today if tolerating diet Clifford Jay MD Jun 15, 2017 09:45
[2017-06-15 09:48] VITALS: O2SAT 94
[2017-06-15 11:26] VITALS: BP 142/92; PULSE 96; RESP 19; TEMP 97.6; O2SAT 95
== END 2017-06-15 12:17 | disposition home or self-care (01) | DRG 472 ==
LOC: HSDI 06-13 06:16 → N06A 06-13 16:02
PROVIDERS: ADMIT Orthopaedic Surgery Orthopaedic Surgery of the Spine; ATTEND Orthopaedic Surgery Orthopaedic Surgery of the Spine
PROC: 0RB30ZZ Excision of Cervical Vertebral Disc, Open Approach (ICD-10-PCS; 2017-06-13)
PROC: 0QB30ZZ Excision of Left Pelvic Bone, Open Approach (ICD-10-PCS; 2017-06-13)
PROC: 0RG20A0 Fusion of 2 or more Cervical Vertebral Joints with Interbody Fusion Device, Anterior Approach, Anterior Column, Open Approach (ICD-10-PCS; principal; 2017-06-13 08:14)
DX: M50.01 Cervical disc disorder with myelopathy, high cervical region (principal); J05.10 Acute epiglottitis without obstruction; E11.65 Type 2 diabetes mellitus with hyperglycemia; I10 Essential (primary) hypertension; M48.02 Spinal stenosis, cervical region; M25.78 Osteophyte, vertebrae; M50.10 Cervical disc disorder with radiculopathy, unspecified cervical region; E78.5 Hyperlipidemia, unspecified; J44.9 Chronic obstructive pulmonary disease, unspecified; R13.10 Dysphagia, unspecified; M10.9 Gout, unspecified; E66.9 Obesity, unspecified; Z68.31 Body mass index [BMI] 31.0-31.9, adult; Z79.84 Long term (current) use of oral hypoglycemic drugs; Z87.891 Personal history of nicotine dependence
CPT/HCPCS: 72040; 76000; C9399; J0131; J0690; J1100; J1170; J1580; J2250; J2270; J2930; J3010; J3370; J7050; J7120; J7512

== ENCOUNTER 2017-06-08 13:09 | Emergency (ER) | payer OTHER ==
[~2017-06-08] VITALS: Ht 180.3 cm; Wt 100.0 kg
[~2017-06-08 13:09] MED LIST changes: +HYDR-3516 PO; +ROPI0.5T PO
[2017-06-08 13:12] VITALS: BP 209/89; PULSE 78; RESP 24; TEMP 97.8; O2SAT 96
[2017-06-08 13:37] VITALS: BP 135/91; PULSE 63; RESP 33
[2017-06-08 14:15] VITALS: O2SAT 98
[2017-06-08] MEDS ORDERED: SODIUM CHLOR 0.9% 1000 ML INJ 1,000 ML IV ONE (14:15)
[2017-06-08 15:03] LABS: AUTOMATED NEUTROPHIL # 7.7 TH/MM3 (1.8-7.7); BASOPHIL # 0.1 TH/MM3 (0-0.2); BASOPHIL % 0.5 % (0.0-2.0); EOSINOPHIL # 0.1 TH/MM3 (0-0.4); EOSINOPHIL % 0.5 % (0.0-4.0); HEMATOCRIT 43.9 % (39.0-51.0); HEMO FLAGS DIFF FINAL; LYMPH % 23.8 % (9.0-44.0); LYMPHOCYTE # 2.6 TH/MM3 (1.0-4.8); MEAN CELL VOLUME 93.9 FL (80.0-100.0); MEAN CORPUSCULAR HEMOGLOBIN 29.6 PG (27.0-34.0); MEAN CORPUSCULAR HGB CONC 31.5 % (32.0-36.0); MONO % 5.3 % (0.0-8.0); NEUT % 69.9 % (16.0-70.0); PLATELET COUNT 268 TH/MM3 (150-450); RED BLOOD COUNT 4.67 MIL/MM3 (4.50-5.90); RED CELL DISTRIBUTION WIDTH 14.2 % (11.6-17.2); WHITE BLOOD COUNT 11.1 TH/MM3 (4.0-11.0)
--- NOTE | 2017-06-08 15:05 | PD ---
HPI Chief Complaint: Numbness/Tingling Time Seen by Provider: 13:31 Travel History International Travel<30 days: No Contact w/Intl Traveler<30days: No Traveled to known affect area: No History of Present Illness HPI Patient is a 57-year-old male who presents to emergency room with complaints of dizziness, confusion, neck pain, bilateral arm tingling and numbness. Patient reports that on May 30, 2017, Dr. Garcia performed cervical fusion of C3-C4, C4 to C5, C5 to C6, C6 to C7, and placed a bone graft. Reports that he is a long-standing history of neck pain and arm pain with bilateral hand weakness and tingling. Patient reports that he hoped that this surgery performed on May 30 with take away his symptoms, reports that after surgery, his symptoms progress and got worse. Reports increased numbness and tingling to bilateral arms and hands, reports pain that makes him "cry out." Patient reports that he followed up with Dr. Garcia's BIRD TENDER Mary on Saturday and was told that this was part of the healing process, patient reports that he cannot take his pain. Patient reports that today, he thinks that he may have taken too many of his [place]. Patient reports that he feels confused today, reports that he feels dizzy and doesn't feel like his normal self. Patient reports concerns that he inadvertently took too many narcotics. Patient reports no fevers or chills, reports that pain is at baseline when compared to after his surgery. PFSH Past Medical History Hx Anticoagulant Therapy: No Arthritis: Yes Blood Disorders: No Cancer: No Cardiovascular Problems: Yes High Cholesterol: Yes Chemotherapy: No Cerebrovascular Accident: No Diabetes: No Diminished Hearing: No Endocrine: No Genitourinary: No Hiatal Hernia: No Hypertension: Yes Immune Disorder: No Musculoskeletal: Yes (NECK INJURY) Neurologic: No Psychiatric: No Reproductive: No Respiratory: No Sleep Apnea: Yes Thyroid Disease: No Past Surgical History Abdominal Surgery: Yes (CHOLECYSTECTOMY) AICD: No Cardiac Surgery: No Ear Surgery: No Endocrine Surgery: No Eye Surgery: Yes (BILATERAL CATARACTS) Genitourinary Surgery: No Joint Replacement: Yes (R HIP) Oral Surgery: No Pacemaker: No Thoracic Surgery: No Other Surgery: Yes (neck surgery ) Social History Alcohol Use: Yes (rare) Tobacco Use: No Substance Use: No Allergies-Medications (Allergen,Severity, Reaction): Coded Allergies: No Known Allergies (Unverified , 06/08/17) Reported Meds & Prescriptions Reported Meds & Active Scripts Active [place] (Hydrocodone-Acetaminophen) 10-325 Mg Tab 1 Tab PO Q4H PRN Reported Zolpidem (Zolpidem Tartrate) 10 Mg Tab 10 Mg PO HS PRN Ropinirole 0.5 Mg Tab 0.5 Mg PO ONCE Metformin (Metformin HCl) 500 Mg Tab 500 Mg PO DAILY PRN With a meal Fenofibrate 160 Mg Tab 160 Mg PO DAILY Allopurinol 300 Mg Tab 300 Mg PO BID Lisinopril 20 Mg Tab 20 Mg PO DAILY Review of Systems General / Constitutional: No: Fever Eyes: No: Visual changes HENT: Positive: Neck Pain, No: Headaches Cardiovascular: No: Chest Pain or Discomfort Respiratory: No: Shortness of Breath Gastrointestinal: No: Abdominal Pain Genitourinary: No: Dysuria Musculoskeletal: Positive: Myalgias, No: Pain Skin: No Rash Neurologic: Positive: Dizziness, Headache, No: Weakness Psychiatric: No: Depression Endocrine: No: Polydipsia Hematologic/Lymphatic: No: Easy Bruising Physical Exam Narrative GENERAL: moderate distress SKIN: Focused skin assessment warm/dry. HEAD: Atraumatic. Normocephalic. EYES: Pupils equal and round. No scleral icterus. No injection or drainage. ENT: No nasal bleeding or discharge. Mucous membranes pink and moist. NECK: Trachea midline. No JVD. Patient in cervical collar CARDIOVASCULAR: Regular rate and rhythm. No murmur appreciated. RESPIRATORY: No accessory muscle use. Clear to auscultation. Breath sounds equal bilaterally. GASTROINTESTINAL: Abdomen soft, non-tender, nondistended. Hepatic and splenic margins not palpable. MUSCULOSKELETAL: No obvious deformities. No clubbing. No cyanosis. No edema. NEUROLOGICAL: Awake and alert. No obvious cranial nerve deficits. Motor grossly within normal limits. Normal speech. PSYCHIATRIC: Appropriate mood and affect; insight and judgment normal. Data Data Last Documented VS Vital Signs Date Time Temp Pulse Resp B/P Pulse Ox O2 Delivery O2 Flow Rate FiO2 06/08/17 14:15 98 Room Air 06/08/17 13:37 63 33 98 06/08/17 13:12 97.8 Orders Complete Blood Count With Diff (06/08/17 14:10) Comprehensive Metabolic Panel (06/08/17 14:10) Oximetry (06/08/17 14:10) Iv Access Insert/Monitor (06/08/17 14:10) Ecg Monitoring (06/08/17 14:10) Drug Screen, Random Urine (06/08/17 14:10) Salicylates (Aspirin) (06/08/17 14:10) Tylenol (Acetaminophen) (06/08/17 14:10) Prothrombin Time / Inr (Pt) (06/08/17 14:10) Act Partial Throm Time (Ptt) (06/08/17 14:10) Sodium Chlor 0.9% 1000 Ml Inj (Ns 1000 M (06/08/17 14:15) Mri C Spine W&W/O Contrast (06/08/17 ) Gadodiamide Pf Inj (Omniscan Pf Inj) (06/08/17 16:43) Oxycodone (Roxicodone) (06/08/17 18:00) Labs Laboratory Tests Test 06/08/17 06/08/17 14:10 15:45 White Blood Count 11.1 TH/MM3 Red Blood Count 4.67 MIL/MM3 Hemoglobin 13.8 GM/DL Hematocrit 43.9 % Mean Corpuscular Volume 93.9 FL Mean Corpuscular Hemoglobin 29.6 PG Mean Corpuscular Hemoglobin 31.5 % Concent Red Cell Distribution Width 14.2 % Platelet Count 268 TH/MM3 Mean Platelet Volume 8.6 FL Neutrophils (%) (Auto) 69.9 % Lymphocytes (%) (Auto) 23.8 % Monocytes (%) (Auto) 5.3 % Eosinophils (%) (Auto) 0.5 % Basophils (%) (Auto) 0.5 % Neutrophils # (Auto) 7.7 TH/MM3 Lymphocytes # (Auto) 2.6 TH/MM3 Monocytes # (Auto) 0.6 TH/MM3 Eosinophils # (Auto) 0.1 TH/MM3 Basophils # (Auto) 0.1 TH/MM3 CBC Comment DIFF FINAL Differential Comment Prothrombin Time 10.7 SEC Prothromb Time International 1.0 RATIO Ratio Activated Partial 23.3 SEC Thromboplast Time Sodium Level 142 MEQ/L Potassium Level 3.5 MEQ/L Chloride Level 107 MEQ/L Carbon Dioxide Level 28.2 MEQ/L Anion Gap 7 MEQ/L Blood Urea Nitrogen 9 MG/DL Creatinine 0.68 MG/DL Estimat Glomerular Filtration 120 ML/MIN Rate Random Glucose 100 MG/DL Calcium Level 9.8 MG/DL Total Bilirubin 0.8 MG/DL Aspartate Amino Transf 33 U/L (AST/SGOT) Alanine Aminotransferase 46 U/L (ALT/SGPT) Alkaline Phosphatase 51 U/L Total Protein 8.1 GM/DL Albumin 3.7 GM/DL Salicylates Level LESS THAN 1.7 MG/DL Acetaminophen Level LESS THAN 2.0 MCG/ML Urine Opiates Screen POS Urine Barbiturates Screen NEG Urine Amphetamines Screen NEG Urine Benzodiazepines Screen NEG Urine Cocaine Screen NEG Urine Cannabinoids Screen NEG MDM Medical Decision Making Medical Screen Exam Complete: Yes Emergency Medical Condition: Yes Interpretation(s) Vital Signs Date Time Temp Pulse Resp B/P Pulse Ox O2 Delivery O2 Flow Rate FiO2 06/08/17 14:15 98 Room Air 06/08/17 13:37 63 33 135/91 Room Air 98 06/08/17 13:37 97 Room Air 06/08/17 13:12 97.8 78 24 209/89 96 Room Air Differential Diagnosis Differential includes cervical spinal stenosis, radiculopathy, cervical myelopathy, degenerative disc disease, accidental opiate overdose, electrolyte abnormality Narrative Course Patient is a 57-year-old male who presents to emergency room after he had posterior cervical spine fusion on May 30 by , presents to ER with c/ o of neck pain and tingling and numbness to his b/l hands. Patient reports that postop, he had similar symptoms, reports that after surgery, he still has tingling and numbness to his hands, reports severe pain down his hands and neck. Patient with no fevers or chills, reports that he may have overdosed on his pain medications as he feels "out of it" and "confused" today. Plan to obtain tox screen and patient. We'll give IV fluids. MRI of C-spine ordered. Vital Signs Date Time Temp Pulse Resp B/P Pulse Ox O2 Delivery O2 Flow Rate FiO2 06/08/17 14:15 98 Room Air 06/08/17 13:37 63 33 135/91 Room Air 98 06/08/17 13:37 97 Room Air 06/08/17 13:12 97.8 78 24 209/89 96 Room Air Laboratory Tests Test 06/08/17 06/08/17 14:10 15:45 White Blood Count 11.1 TH/MM3 (4.0-11.0) Red Blood Count 4.67 MIL/MM3 (4.50-5.90) Hemoglobin 13.8 GM/DL (13.0-17.0) Hematocrit 43.9 % (39.0-51.0) Mean Corpuscular Volume 93.9 FL (80.0-100.0) Mean Corpuscular Hemoglobin 29.6 PG (27.0-34.0) Mean Corpuscular Hemoglobin 31.5 % Concent (32.0-36.0) Red Cell Distribution Width 14.2 % (11.6-17.2) Platelet Count 268 TH/MM3 (150-450) Mean Platelet Volume 8.6 FL (7.0-11.0) Neutrophils (%) (Auto) 69.9 % (16.0-70.0) Lymphocytes (%) (Auto) 23.8 % (9.0-44.0) Monocytes (%) (Auto) 5.3 % (0.0-8.0) Eosinophils (%) (Auto) 0.5 % (0.0-4.0) Basophils (%) (Auto) 0.5 % (0.0-2.0) Neutrophils # (Auto) 7.7 TH/MM3 (1.8-7.7) Lymphocytes # (Auto) 2.6 TH/MM3 (1.0-4.8) Monocytes # (Auto) 0.6 TH/MM3 (0-0.9) Eosinophils # (Auto) 0.1 TH/MM3 (0-0.4) Basophils # (Auto) 0.1 TH/MM3 (0-0.2) CBC Comment DIFF FINAL Differential Comment Prothrombin Time 10.7 SEC (9.8-11.6) Prothromb Time International 1.0 RATIO Ratio Activated Partial 23.3 SEC Thromboplast Time (24.3-30.1) Sodium Level 142 MEQ/L (136-145) Potassium Level 3.5 MEQ/L (3.5-5.1) Chloride Level 107 MEQ/L (98-107) Carbon Dioxide Level 28.2 MEQ/L (21.0-32.0) Anion Gap 7 MEQ/L (5-15) Blood Urea Nitrogen 9 MG/DL (7-18) Creatinine 0.68 MG/DL (0.60-1.30) Estimat Glomerular Filtration 120 ML/MIN Rate (>89) Random Glucose 100 MG/DL (74-106) Calcium Level 9.8 MG/DL (8.5-10.1) Total Bilirubin 0.8 MG/DL (0.2-1.0) Aspartate Amino Transf 33 U/L (15-37) (AST/SGOT) Alanine Aminotransferase 46 U/L (12-78) (ALT/SGPT) Alkaline Phosphatase 51 U/L (45-117) Total Protein 8.1 GM/DL (6.4-8.2) Albumin 3.7 GM/DL (3.4-5.0) Salicylates Level LESS THAN 1.7 MG/DL (2.8-20.0) Acetaminophen Level LESS THAN 2.0 MCG/ML (10.0-30.0) Urine Opiates Screen POS (NEG) Urine Barbiturates Screen NEG (NEG) Urine Amphetamines Screen NEG (NEG) Urine Benzodiazepines Screen NEG (NEG) Urine Cocaine Screen NEG (NEG) Urine Cannabinoids Screen NEG (NEG) Last Impressions Cervical Spine MRI 06/08/17 0000 Signed Impressions: Service Date/Time: Thursday, June 08, 2017 16:20 - CONCLUSION: 1. Post surgical changes involving the dorsal soft tissues without abscess or hematoma. 2. Facet cages bilaterally at C3-C4, C4-C5, C5-C6, and C6-C7. 3. Multilevel degenerative changes with areas of above of the cord as well as neural foraminal narrowing as detailed at each level in the above discussion. No signal change within the cord. Rickie Good Jr., MD There are no acute changes, there is postsurgical changes involving the dorsal soft tissues without abscess or hematoma. There is moderate degenerative changes as well as neural foraminal narrowing seen on the MRI. No signal change within the cord. Discussed with patient need to follow up with Dr. Garcia. He will bring a copy of his studies to his doctor's office for follow up. Signs and symptoms of when to return to the ER was reviewed with patient in detail. Patient initial "confusion" most likely from accidental overdose on opiates. Patient is not confused anymore and is alert and oriented x 3. Patient will follow up with Dr. Garcia in the office and will return to ER as needed Diagnosis Primary Impression: Cervical myelopathy with cervical radiculopathy Additional Impressions: Degenerative disc disease, cervical Cervical spinal stenosis Drug reaction Patient Instructions: General Instructions Additional Instructions: Please provide patient with a copy of his lab work and studies at discharge Please follow-up with Dr. Garcia first thing Saturday, please bring your MRI report to your doctor's office for follow up on all studies Please be careful when taking your narcotic pain medications and take them as prescribed Return to ER if symptoms worsen or persist Return to ER as needed Disposition: 01 DISCHARGE HOME Condition: Stable Franci Pena DO Jun 08, 2017 15:05
[2017-06-08 15:16] LABS: APTT (PATIENT) 23.3 SEC (24.3-30.1); PROTHROMBIN TIME - PATIENT 10.7 SEC (9.8-11.6)
[2017-06-08 15:27] LABS: ANION GAP 7 MEQ/L (5-15); AST (GOT) 33 U/L (15-37); BICARBONATE 28.2 MEQ/L (21.0-32.0); BLOOD UREA NITROGEN 9 MG/DL (7-18); CHLORIDE 107 MEQ/L (98-107); GLOMERULAR FILTRATION RATE 120 ML/MIN (>89); POTASSIUM 3.5 MEQ/L (3.5-5.1); SODIUM (NA) 142 MEQ/L (136-145)
[2017-06-08 15:32] LABS: ALKALINE PHOSPHATASE 51 U/L (45-117); ALT (GPT) 46 U/L (12-78); TOTAL BILIRUBIN ADULT 0.8 MG/DL (0.2-1.0)
[2017-06-08 15:33] LABS: ACETAMINOPHEN LESS THAN 2.0 MCG/ML (10.0-30.0)
[2017-06-08 16:00] VITALS: BP 159/84; PULSE 50; RESP 22; O2SAT 96
[2017-06-08 16:13] LABS: AMPHETAMINE, URINE NEG (NEG); BARBITURATES, URINE NEG (NEG); COCAINE, URINE NEG (NEG)
[2017-06-08] MEDS ORDERED: GADODIAMIDE PF 287 MG/ML 20 ML VIAL (for RAD MRI) IV ONE (16:43)
--- NOTE | 2017-06-08 17:17 | RADRPT ---
EXAM DATE/TIME: 06/08/2017 16:20 [facility] COMPARISON: SPINE CERVICAL LTD (AP&LAT), May 30, 2017, 14:13. INDICATIONS : Radiculopathy. CONTRAST: 20 cc Omniscan (gadodiamide) IV MEDICAL HISTORY : Hypertension. Diabetes mellitus type 2. SURGICAL HISTORY : Cholecystectomy. CSPINE SX ENCOUNTER: Initial ACUITY: 1 day PAIN SCORE: 6/10 LOCATION: Parasp[facility] TECHNIQUE: Multiplanar, multisequence MRI examination of the cervical spine was performed. FINDINGS: VERTEBRAE: Facet cages are seen bilaterally at C3-C4, C4-C5, C5-C6 and C6-C7 there is edema seen involving the p araspinal soft tissues posteriorly extending to the dorsal skin surface. No abscess or fluid collecti on observed. Marrow signal is normal throughout.. ALIGNMENT: There is straightening of the cervical spine. No anterolisthesis or retrolisthesis. CORD: Normal configuration and signal. POST FOSSA: The cerebellar tonsils are normal in position. POST-CONTRAST: No abnormal areas of enhancement are seen. C2-C3: The thecal sac has a normal configuration. There is no evidence of disc herniation or spinal canal stenosis. Bony uncovertebral hypertrophy on the left and right mild narrowing of the neural foramen. The right is patent. C3-C4: There is disc space narrowing with a broad-based disc bulge eccentric to the right. This just touches the ventral portion of the cord to the right of midline without flattening. Anterior to posterior di mension of the central canal in the midline is 10 mm. Artifact from the facet cages generate some naylor itations to the evaluation. The neural foramina appear grossly patent. C4-C5: There is disc space narrowing with a broad-based disc bulge that mildly flattens the right ventral po rtion of the cord. The anterior to posterior dimension of the central canal in the midline measures 9 mm. The facet cages generate some artifact. There is mild right and mild left neural foraminal narro wing. C5-C6: There is disc space narrowing with broad-based disc osteophyte complex that flattens the ventral port ion of the cord. Central canal measures 7 mm in the midline. Artifact from the facet cages generate s ome limitation. Bilateral moderate neural foraminal narrowing is noted. C6-C7: There is disc space narrowing with disc desiccation and right paracentral disc bulge. No flattening o f the cord. Central canal measures 8 mm. Artifact in the facet cages observed with moderate bilateral neural foraminal narrowing. C7-T1: The thecal sac has a normal configuration. There is no evidence of disc herniation or spinal canal s tenosis. The neural foramina are patent bilaterally. CONCLUSION: 1. Post surgical changes involving the dorsal soft tissues without abscess or hematoma. 2. Facet cages bilaterally at C3-C4, C4-C5, C5-C6, and C6-C7. 3. Multilevel degenerative changes with areas of above of the cord as well as neural foraminal narrow ing as detailed at each level in the above discussion. No signal change within the cord. Rickie Good Jr., MD on June 08, 2017 at 17:01 Board Certified Radiologist. This report was verified electronically.
[2017-06-08 18:00] VITALS: BP 147/93; PULSE 70; RESP 18; O2SAT 97
== END 2017-06-08 18:13 | disposition home or self-care (01) ==
LOC: NEPE 13:09
DX: G95.9 Disease of spinal cord, unspecified (principal); M54.12 Radiculopathy, cervical region; M50.00 Cervical disc disorder with myelopathy, unspecified cervical region; M48.02 Spinal stenosis, cervical region; T50.995A Adverse effect of other drugs, medicaments and biological substances, initial encounter; I10 Essential (primary) hypertension; E78.00 Pure hypercholesterolemia, unspecified; G47.30 Sleep apnea, unspecified; Z98.890 Other specified postprocedural states; Z79.899 Other long term (current) drug therapy; Z87.39 Personal history of other diseases of the musculoskeletal system and connective tissue; Z86.79 Personal history of other diseases of the circulatory system
CPT/HCPCS: 72156; 80053; 80307; 85025; 85610; 85730; 96360; 99285; A9579; J7030